=== PATIENT | male | born 1975 | race Two or more races ===

== ENCOUNTER → 2016-10-03 | Outpatient (CLI) | payer BC | LOC: MW.CHFP 12:19 | PROVIDERS: ATTEND Student in an Organized Health Care Education/Training Program | DX: K52.81 Eosinophilic gastritis or gastroenteritis (principal); R19.5 Other fecal abnormalities; R14.0 Abdominal distension (gaseous); R19.8 Other specified symptoms and signs involving the digestive system and abdomen | CPT/HCPCS: 83630; 87046; 87324; 87338; 87899 ==